=== PATIENT | male | born 1985 | race African-American/Black ===

== ENCOUNTER → 2024-02-07 | Day surgery (SDC) | payer OTHER ==
[2024-01-27 12:55] VITALS: BMI 24.4
[~2024-02-07] MED LIST: MIDAZOLAM HCL 2 MG/2 ML SINGLE DOSE VIAL ONE
== END | disposition home or self-care (01) ==
LOC: JASU-SURG 03:40
PROVIDERS: ATTEND Urology
DX: Z53.8 Procedure and treatment not carried out for other reasons (principal)

== ENCOUNTER 2025-01-09 07:17 | Day surgery (SDC) | payer OTHER ==
[2025-01-08 09:38] VITALS: BMI 24.1
[2025-01-09] MEDS ORDERED: SUCCINYLCHOLINE CHLORIDE 200 MG/10 ML SYRINGE ONE (12:35)
[2025-01-09] MEDS ORDERED: PROPOFOL 20 ML ONE ×2 (12:37→14:06)
[2025-01-09] MEDS ORDERED: MIDAZOLAM HCL 2 MG/2 ML SINGLE DOSE VIAL ONE (12:58)
[2025-01-09] MEDS ORDERED: ONDANSETRON 4 MG/2 ML VIAL ONE ×2 (12:59→17:14)
[2025-01-09] MEDS ORDERED: DEXAMETHASONE SOD PHOSPHATE 4 MG/1 ML VIAL ONE (12:59)
[2025-01-09] MEDS: ceFAZolin SODIUM 1 GM VIAL IVPB ONE (13:45)
[2025-01-09] MEDS ORDERED: ceFAZolin SODIUM 1 GM VIAL ONE (14:01)
[2025-01-09] MEDS ORDERED: oxyCODONE HCL 5 MG TABLET PO PRN (14:38)
[2025-01-09] MEDS ORDERED: LACTATED RINGERS SOLUTION 1,000 ML IV SCH (15:15)
[2025-01-09 15:43] VITALS: RESP 18
[2025-01-09] MEDS: ONDANSETRON 4 MG/2 ML VIAL IVPUSH PRN (17:16)
[2025-01-09 18:30] VITALS: BP 149/77; PULSE 77; TEMP 97.6
== END 2025-01-09 18:37 | disposition home or self-care (01) ==
LOC: JASU-SURG 07:17
PROVIDERS: ATTEND Urology
PROC: 0TC08ZZ Extirpation of Matter from Right Kidney, Via Natural or Artificial Opening Endoscopic (ICD-10-PCS; 2025-01-09)
PROC: 0T788DZ Dilation of Bilateral Ureters with Intraluminal Device, Via Natural or Artificial Opening Endoscopic (ICD-10-PCS; 2025-01-09)
PROC: 0TC18ZZ Extirpation of Matter from Left Kidney, Via Natural or Artificial Opening Endoscopic (ICD-10-PCS; principal; 2025-01-09 13:00)
DX: N20.0 Calculus of kidney (principal)
CPT/HCPCS: 76000-TC-FY; 94760; C2617